=== PATIENT | female | born 1990 | race Caucasian/White ===

== ENCOUNTER 2017-06-05 | Inpatient (IN) ==
[2017-06-07] MEDS ORDERED: Famotidine 20 MG/2 ML VIAL IVP PRN (02:12)
[2017-06-07] MEDS ORDERED: Naloxone 0.4 MG/ML INJ IVP PRN (02:12)
[2017-06-07] MEDS ORDERED: Ondansetron 4 MG/2 ML VIAL IVP PRN (02:12)
[2017-06-07] MEDS ORDERED: Metoclopramide 10 MG/2 ML VIAL IVP PRN (02:12)
[2017-06-07] MEDS ORDERED: *HR* Nalbuphine 20 MG/ML AMPUL IVP PRN (02:15)
[2017-06-07] MEDS ORDERED: Penicillin G Potassium 5,000,000 UNIT in D5% in Water (Mini-Bag+) 100 ML IVPB ONE (02:16)
[2017-06-07] MEDS ORDERED: Ringers Solution, Lactated 1,000 ML ONE ×3 (02:34→05:41)
[2017-06-07 02:39] LABS: Basophils % 0.2 %; Eosinophils % 0.4 %; Hemoglobin 11.9 g/dL (11.5-15.4); Immature Granulocytes % 0.3 % (0-4); Immature Platelets 5.9 % (1.1-6.1); Lymphocytes # 2.4 K/mcL (0.6-4.6); Lymphocytes % 25.8 %; Mean Corpuscular Hemoglobin 30.8 pg (28.0-33.3); Mean Corpuscular Volume 90.7 fL (83.0-100.0); Mean Platelet Volume 11.5 fL (9.4-12.4); Monocytes # 0.5 K/mcL (0.0-1.3); Monocytes % 4.9 %; Neutrophils # 6.3 K/mcL (1.6-8.9); Platelet Count 124 K/mcL (140-400); Red Blood Count 3.86 M/mcL (3.82-4.97); Red Cell Distribution Width 13.8 % (11.5-14.5); Segmented Neutrophils % 68.4 %
[2017-06-07 02:48] LABS: Amphetamine Screen,Urine Negative ng/mL (Cutoff=1000); Barbiturate Screen,Urine Negative ng/mL (Cutoff=200); Benzodiazepines Screen,Urine Negative ng/mL (Cutoff=200); Cannabinoid Screen,Urine Negative ng/mL (Cutoff = 50); Cocaine Screen,Urine Negative ng/mL (Cutoff= 300); Opiate Screen,Urine Negative ng/mL (Cutoff=300); Phencyclidine Screen,Urine Negative ng/mL (Cutoff=25)
[2017-06-07] MEDS ORDERED: Penicillin G Potassium 2,500,000 UNIT in D5% in Water 100 ML IVPB SCH (04:00)
[2017-06-07] MEDS ORDERED: miSOPROStol 25 MCG TABLET PO SCH (04:00)
[2017-06-07] MEDS ORDERED: Epidural Premix (fent/bupiv) 110 ML EP ONE (05:45)
[2017-06-07] MEDS ORDERED: *HR* FentaNYL (PF) 100 MCG/2 ML VIAL ONE (05:45)
[2017-06-07] MEDS ORDERED: Bupivacaine-MPF 0.25% 10 ML VIAL ONE (05:46)
[2017-06-07] MEDS ORDERED: *HR* Phenylephrine 10 MG/ML VIAL ONE (06:16)
--- NOTE | 2017-06-07 06:34 | Anesthesia Evaluation PreOp ---
Date of Encounter: 06/07/17 Time of Encounter: 06:32 - Past History Planned Operation: CSE Cardiac History: Denies any Significant Hx Pulmonary History: Denies Any Significant HX COMMAND AND CONTROL SPECIALIST History: Denies Any Significant HX Other Medical History: Other (thrombocytopenia but patient denies S&S of bleeding) Anesthesia History: No Prior Anesthetic Complications (denies h/o NA complications; denies family h/o GA complications), Past Anesthesia (SANDY x 1; never had GA) : Yes Test: Positive Alcohol Use: none Drug use: none Medications and Allergies Tablet 1 tab PO DAILY 10/15/15 [History] Ranitidine HCl 150 mg PO DAILY 10/15/15 [History] Loratadine [Allergy Relief] 10 mg PO DAILY 06/07/17 [History] 3 Allergy/AdvReac Type Severity Reaction Status Date / Time No Known Allergies Allergy Verified 10/15/15 06:20 - Meds/Allergy Pre-op Review Medications Reviewed: Yes Allergies Reviewed: Yes Beta Blockers on Current Med List: No Anesthesia Results - Labs 06/07/17 02:32 Anesthesia Exam 135/82, HR66, RR 22 O2 Sat Height 1.65 m Weight 83.6 kg NPO (# of Hours): solids > 4 hours Pain Scale: 8 Pain Scale Used: Numeric (1 - 10) - HEENT Pupil (Motor): Pupils equal Mallampati: II Teeth: Missing Oral Opening: Greater than 3 - COMMAND AND CONTROL SPECIALIST LOC: Oriented COMMAND AND CONTROL SPECIALIST Motor: Normal RUE, Normal LUE, Normal RLE, Normal LLE, Normal Face COMMAND AND CONTROL SPECIALIST Sensory: Normal: RUE, LUE, RLE, LLE, Face - Cardiac Rhythm: Regular Murmur: None - Pulmonary Breath Sounds: bilateral Clear Respiratory Effort: Symmetrical Anesthesia Assess/Plan ASA Score: 2 Modified Nye Scale for Level of Consciousness: Anixous, agitated or restless Anesthetic Plan: Regional Autologous Blood: No Monitoring Plan: Standard Monitors Recovery Plan: Other
--- NOTE | 2017-06-07 06:38 | Anesthesia Procedures ---
Date of Encounter: 06/07/17 Time of Encounter: 06:36 Procedures: Anesthesia - Epidural/Spinal Patient ID/Chart reviewed: Yes Patient examined: Yes OB Eval: Gestational age: 39 week 1 day OB Eval: : 2 OB Eval: Hx Para: 1 OB Eval: Dilated at (cm): 8 OB Eval: Contractions: Non-stressed pattern Consent Obtained: Yes Supplemental Oxygen: None/Room Air Site Prep: Aseptic Technique, Sterile prep and drape, Povidone-Iodine 1% Patient position: upright Local Anesthetic: Lidocaine 1% Amount of Local Anesthetic used: 3 Touhy Needle Gauge: 18 Touhy Needle Depth (cm): 4 Catheter Depth at Skin (cm): 10 (will remain "dry" catheter for now) Test Dose (1.5% Lido + Epi): Volume given (mls): 5 Test Dose Result: Negative Catheter Secured in Place: Tegaderm, Tape Interspace Used: L3-L4 Loss of Resistance (EMMY): Yes Blood: No CSF: Yes (via spinal needle) Paresthesia: No Spinal Needle Gauge: Other (27G pencan needle) Spinal Dose: 25mcg fentanyl + 0.5mL of 0.25% bupivicaine Procedure: successful on 1st attempt; 25mg IVP diphenhydramine administered for patient c/ o itching Vitals + FHT's: please see Verito DOWNING's electronic documentation for VS
[2017-06-07] MEDS ORDERED: Bupivacaine-MPF 0.25% 10 ML VIAL EP ONE (06:40)
[2017-06-07] MEDS ORDERED: *HR* FentaNYL (PF) 100 MCG/2 ML VIAL EP ONE (06:40)
[2017-06-07] MEDS ORDERED: Epidural Premix (fent/bupiv) 110 ML EP SCH (06:45)
[2017-06-07] MEDS ORDERED: Oxytocin 20 units/ LR 1000 mL 20 UNIT/1,000 ML BAG IVC ONE ×2 (08:02→10:05)
--- NOTE | 2017-06-07 08:22 | OB/GYN Procedure Note ---
Delivery - Delivery Date: 06/07/17 Provider: Celine Conklin Intrapartum events: none Delivery induction: misoprostol Delivery augmentation: rupture of membranes Delivery monitor: external FHT, external uterine Anesthesia: epidural Estimated Blood Loss: 200 - Infant (s) Infant A Delivery Date: 06/07/17 Infant Delivery Time: 08:04 Presentation: vertex Position: PIPO Route of delivery: Gender: Male Viability: Viable Pounds: 8 Ounces: 5 Weight Gram: 3.77 kg at 1 minute: 7 at 5 mins: 9 Shoulder Dystocia: not encountered Specimens collected: cord blood Placenta: spontaneous Cord: nuchal cord, 3 umbilical vessels, delivered through nuchal - Repair Episiotomy: none Laceration Description: Labial - Complications Delivery complications: none Delivery comments: Called to room with patient complete and +2 station. Under maternal effort she delivered a viable male weighing 8 lbs. 5 oz. and Apgars 7 and 9 at one and 5 minutes respectively over an intact perineum. Following the delivery of the head the infant was bulb suctioned. There was a nuchal cord noted that she delivered through. No shoulder dystocia was encountered. was placed on mom's abdomen. Initial heart rate was less than 100 and therefore cord was clamped and cut and infant was taken to warmer. Cord blood was collected. Placenta delivered spontaneously, complete, and intact with a three-vessel cord. There is an anterior left labial laceration that was reapproximated using 3-0 Monocryl in an interrupted fashion. Patient delivered and repair done with epidural anesthesia. Mother and infant are recovering in the LDR in stable condition.. - Disposition Mom disposition: stable in LDR disposition: stable in LDR
--- NOTE | 2017-06-07 08:25 | OB/GYN History & Physical ---
Date of Encounter: 06/07/17 Time of Encounter: 07:45 Assessment and Plan (1) 39 weeks gestation of Current visit: Yes Status: Acute (2) Elective induction of labor planned Current visit: Yes Status: Acute Patient was given a dose of PO cytotec which progressed her to 8 cm. She has her epidural in place. AROM with clear fluid noted. She will be repositioned to help progress the rim of cervix remaining. (3) Group B streptococcal infection during Current visit: Yes Status: Acute PCN was initiated on admission IV History of Present Illness Chief complaint: induction of labor at term HPI: Ms. Gallegos is a 26 year old female G2 P 1-0-0-1 at 39 3/7 weeks admitted for induction of labor at term. She denies any contractions, leaking of fluid, or vaginal bleeding prior to admission. has been uncomplicated. Past Med Surg Social Fam HX - Past Medical History Source: patient Medical history: no medical history Psychiatric history: no psych history - Past Surgical History Surgical History: no surgical history - Social History Smoking Status: Never smoker Smokeless Tobacco Status: No Alcohol use: none Drug use: none - Family History Sister Adopted: No Living Status: Still Living Hx Family Cardiac Disorders: No Hx Family Respiratory Disorders: No Hx Family Cancer: No Hx Family GI Disorders: No Hx Family Genitourinary Disorders: No Hx Family Endocrine Disorder: No Hx Family Musculoskeletal Disorders: No Hx Family Neuromuscular Disorders: No Hx Family Neurologic Disorders: No Hx Family HEENT Disorders: No Hx Family Autoimmune Disorders: No Hx Family Reproductive Disorders: No Hx Family Psychosocial Disorders: No Hx Family Medical Disorders: No Obstetrical History - Pregnancies : 2 Para: 1 Livin Medications and Allergies Tablet 1 tab PO DAILY 10/15/15 [History] Ranitidine HCl 150 mg PO DAILY 10/15/15 [History] Loratadine [Allergy Relief] 10 mg PO DAILY 06/07/17 [History] 3 Allergy/AdvReac Type Severity Reaction Status Date / Time No Known Allergies Allergy Verified 10/15/15 06:20 Review of System OB All systems PM: reviewed and no additional remarkable complaints except as stated Exam - Constitutional Constitutional: well developed, well nourished, no acute distress, average body habitus - HEENT HEENT: EOMI, Normocephaly, Mucus Membranes Moist - Lungs Respiratory exam: CTAB - Cardiovascular Cardiovascular exam: RRR - Abdomen Abdomen: Present: bowel sounds normal, gravid, non tender - Vulva Vulva: bilateral: normal - Vagina Vagina: Present: normal moisture, discharge - Cervix Dilation: 9 Effacement: 90 Station: 0 Results Result Diagrams: 06/07/17 02:32 Abnormal lab results Hct 35.0 % (35.3-44.9) L 06/07/17 02:32 Plt Count 124 K/mcL (140-400) L 06/07/17 02:32 All other labs normal. US - abdomen: report reviewed (office ultrasound 05/26 7 lb 6 oz EFW, vertes, VALERIE 16.8cm)
[2017-06-07] MEDS ORDERED: Acetaminophen 325 MG TABLET PO PRN (12:30)
[2017-06-07] MEDS: Ibuprofen 600 MG TABLET PO PRN ×2 (12:40→18:31)
[2017-06-07] MEDS ORDERED: Benzocaine/Menthol 56 GM AEROSOL SPRAY TP PRN (17:31)
[2017-06-08] MEDS: Ibuprofen 600 MG TABLET PO PRN (03:35)
[2017-06-08 07:50] VITALS: BP 93/56
--- NOTE | 2017-06-08 08:37 | Discharge Summary ---
Date of Encounter: 06/08/17 Time of Encounter: 08:35 - Discharge Diagnosis (1) Status post vaginal delivery Priority: Primary Status: Acute Comments: Routine care Discharge home today (2) Breast feeding status of mother Priority: Secondary Status: Acute Comments: support as needed. - Discharge Medications Prescriptions: Ibuprofen [Motrin] 600 mg PO Q6HR PRN #60 tablet PRN Reason: Pain Home Medications: Benzocaine/Menthol [place] [Dermoplast [place]] 1 appl TP QID PRN aerosol 06/08/17 [Rx] Ibuprofen [Motrin] 600 mg PO Q6HR PRN #60 tablet 06/08/17 [Rx] Vit/FA 1 each PO DAILY tablet 06/08/17 [Rx] Allergies/Adverse Reactions: 3 Allergy/AdvReac Type Severity Reaction Status Date / Time No Known Allergies Allergy Verified 10/15/15 06:20 Data Procedures and tests throughout hospitalization: Laboratory Tests 06/07/17 06/07/17 02:32 02:32 WBC 9.3 RBC 3.86 Hgb 11.9 Hct 35.0 L MCV 90.7 MCH 30.8 MCHC 34.0 RDW 13.8 Plt Count 124 L MPV 11.5 Immature Gran % 0.3 Seg Neutrophils % 68.4 Lymphocytes % 25.8 Monocytes % 4.9 Eosinophils % 0.4 Basophils % 0.2 Neutrophils # 6.3 Lymphocytes # 2.4 Monocytes # 0.5 Eosinophils # 0.0 Basophils # 0.0 Immature Plt Fraction 5.9 Urine Opiates Screen Negative Ur Barbiturates Screen Negative Ur Phencyclidine Scrn Negative Ur Amphetamines Screen Negative U Benzodiazepines Scrn Negative Urine Cocaine Screen Negative U Marijuana (THC) Screen Negative Date of admission: 06/07/17 02:06 Primary care physician: Andree Little CNP Discharging clinician: Caro Moreno Anticipated date of discharge: 06/08/17 - Patient Status Disposition: Home, Self-Care Condition: Good Functional capacity at discharge: independent ambulation - Discharge Instructions Follow Up With: Andree Little CNP [Primary Care Provider] - Celine Conklin DO [Partnered Physician] - - Diet and Activity Activity: increase activity as tolerated Diet: advance to your usual diet Hospital Course Reason for admission: active labor Delivery: Episiotomy: none Laceration: 1st degree Other procedures: none complications: none Discharge diagnosis: IUP at term delivered baby: male Time Attestation: Total time spent providing and/or coordinating discharge services: Time Spent: Less than 30 minutes Exam - Constitutional Vitals: Temp Pulse Resp BP Pulse Ox 98.1 F 57 18 93/56 99 06/08/17 07:30 06/08/17 07:30 06/08/17 07:45 06/08/17 07:30 06/08/17 03:37 General appearance IM: A&O X 3 - Respiratory Respiratory exam: Present: CTAB - Cardiovascular Cardiovascular exam IM: Present: RRR, +S1, +S2 - GI/Abdominal GI/Abdominal exam IM: normal bowel sounds - Rectal Rectal exam: deferred - Uterine Tone: Firm Uterus Position: 1 Finger Below Umbilicus - Extremities Exam Extremities exam IM: Present: normal capillary refill, normal inspection - Neurological Exam Neurological exam: oriented X3
[2017-06-08] MEDS ORDERED: Prenatal Vit/FA 1 EACH TABLET PO SCH (09:00)
== END 2017-06-08 11:00 | disposition home or self-care (01) | DRG 560 ==
LOC: 1NENULAB 06-07 02:06 → 1NENUOBS 06-07 10:40
PROVIDERS: ADMIT Obstetrics & Gynecology; ATTEND Obstetrics & Gynecology